=== PATIENT | female | born 1980 | race American Indian/Alaskan Native ===

== ENCOUNTER 2018-04-08 16:39 | Emergency (ER) | payer OTHER ==
[2018-04-08 16:55] VITALS: BMI 26.4
[2018-04-08 17:03] VITALS: BP 132/84; PULSE 88; TEMP 98; O2SAT 99
[2018-04-08 17:33] LABS: HCG,QUALITATIVE URINE NEGATIVE (NEGATIVE)
[2018-04-08 17:38] LABS: SQUAMOUS EPITHIAL 9 /hpf (0-5); URINE BACTERIA FEW (<OCC); URINE BILIRUBIN NEGATIVE (NEGATIVE); URINE BLOOD 2+ (NEGATIVE); URINE CLARITY Hazy (Clear); URINE COLOR Yellow (YELLOW); URINE GLUCOSE (UA) NORMAL (Normal); URINE LEUKOCYTE ESTERASE 2+ Leu/uL (Negative); URINE PROTEIN NEGATIVE (NEGATIVE)
[2018-04-08 17:50] LABS: BARBITURATES, UR NEGATIVE (NEGATIVE); BENZODIAZEPINES, UR POSITIVE (NEGATIVE); OPIATES, UR POSITIVE (NEGATIVE); PHENCYCLIDINE, UR POSITIVE (NEGATIVE)
[2018-04-08] MEDS ORDERED: cefTRIAXone (Rocephin) 250 mg Inj IM STA ×2 (18:08→18:25)
[2018-04-08] MEDS ORDERED: Emtricitabine-Tenofovir 200 mg-300 mg Tab PO STA (18:08)
[2018-04-08] MEDS ORDERED: Emtricitabine-Tenofovir 200 mg-300 mg Tab PO NR (18:15)
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
[2018-04-08] MEDS ORDERED: cefTRIAXone 500 MG in Sodium Chloride 0.9% 50 ML IM STA (18:19)
[2018-04-08 18:28] LABS: BASO # 0.1 K/uL (0.0-0.2); BASO % 1.8 % (0.0-2.0); EOS # 0.2 K/uL (0.0-0.7); HEMOGLOBIN 11.5 g/dL (11.0-16.0); LYMPH # 2.9 K/uL (1.0-4.3); MEAN CELL VOLUME 93.6 fL (81.0-99.0); MEAN CORPUSCULAR HEMOGLOBIN 31.7 pg (27.0-31.0); MEAN CORPUSCULAR HGB CONC 33.8 g/dL (33.0-37.0); MEAN PLATELET VOLUME 8.4 fL (7.2-11.7); MONO # 0.3 K/uL (0.0-0.8); MONO % 4.9 % (0.0-10.0); NEUT # 2.7 K/uL (1.8-7.0); NEUT % 43.3 % (50.0-75.0); NRBC % 0.1 % (0.0-2.0); RBC 3.64 Mil/uL (3.80-5.20); RED CELL DISTRIBUTION WIDTH 13.7 % (11.5-14.5); WHITE BLOOD COUNT 6.2 K/uL (4.8-10.8)
[2018-04-08 18:44] LABS: ALBUMIN 3.8 g/dL (3.5-5.0); ALT/SGPT 9 U/L (9-52); AST/SGOT 20 U/L (14-36); BLOOD UREA NITROGEN 9 mg/dL (7-17); CALCIUM 8.8 mg/dl (8.6-10.4); GFR AFRICAN-AMERICAN > 60; GFR NON-AFRICAN AMERICAN > 60
[2018-04-08 19:32] VITALS: RESP 20
== END 2018-04-08 19:31 | disposition home or self-care (01) ==
LOC: C.ER 16:39
DX: Z04.41 Encounter for examination and observation following alleged adult rape (principal); Z59.0 Homelessness
CPT/HCPCS: 80053; 80324; 80345; 80346; 80349; 80353; 80358; 80361; 81001; 83992; 84703; 85025; 86592; 86703; 86706; 87086; 96372; 99285; J0696; J1885

== ENCOUNTER 2018-11-24 16:59 | Inpatient (IN) | payer MEDICAID, OTHER ==
[2018-11-24 17:00] VITALS: BMI 26.4
[2018-11-24 18:24] LABS: HEMOGLOBIN 11.9 g/dL (11.0-16.0); MEAN CELL VOLUME 94.8 fL (81.0-99.0); MEAN CORPUSCULAR HEMOGLOBIN 30.8 pg (27.0-31.0); MEAN CORPUSCULAR HGB CONC 32.5 g/dL (33.0-37.0); MEAN PLATELET VOLUME 8.7 fL (7.2-11.7); RBC 3.88 Mil/uL (3.80-5.20); RED CELL DISTRIBUTION WIDTH 13.2 % (11.5-14.5); WHITE BLOOD COUNT 7.2 K/uL (4.8-10.8)
[2018-11-24 18:28] LABS: SQUAMOUS EPITHIAL 1 /hpf (0-5); URINE BACTERIA RARE (<OCC); URINE BILIRUBIN NEGATIVE (NEGATIVE); URINE BLOOD 3+ (NEGATIVE); URINE CLARITY Clear (Clear); URINE COLOR Yellow (YELLOW); URINE GLUCOSE (UA) NORMAL (Normal); URINE LEUKOCYTE ESTERASE NEG Leu/uL (Negative); URINE PROTEIN NEGATIVE (NEGATIVE); URINE UROBILINOGEN NORMAL mg/dL (0.2-1.0)
[2018-11-24 18:38] LABS: ALB/GLOB RATIO 1.2 (1.0-2.1); ALBUMIN 4.6 g/dL (3.5-5.0); ALT/SGPT 29 U/L (9-52); AST/SGOT 25 U/L (14-36); BLOOD UREA NITROGEN 14 mg/dL (7-17); CALCIUM 8.7 mg/dl (8.6-10.4); GFR NON-AFRICAN AMERICAN 55
[2018-11-24 18:41] LABS: BARBITURATES, UR NEGATIVE (NEGATIVE)
[2018-11-24 18:42] LABS: BENZODIAZEPINES, UR POSITIVE (NEGATIVE); OPIATES, UR POSITIVE (NEGATIVE); PHENCYCLIDINE, UR POSITIVE (NEGATIVE)
--- NOTE | 2018-11-24 19:11 | C.PDOC ---
History Of Present Illness 38 year old female presents to the emergency department requesting detox from opiates last taken yesterday. Patient complains of chest tightness, and states that she was "supposed to take medicine for her heart" for an unspecific reason, and that she hasn't taken it in a long time. Patient denies cough, fever, chills, chest pain, shortness of breath, and other physical and psychological complaints. Time Seen by Provider: 11/24/18 18:07 Chief Complaint (Nursing): Substance Abuse History Per: Patient History/Exam Limitations: no limitations Onset/Duration Of Symptoms: Days (1) Current Symptoms Are (Timing): Still Present Suicide/Self Injury Attempted (Context): None Modifying Factor(s): Other (opiates) Associated Symptoms: denies: Suicidal Thoughts, Suicidal Plan Past Medical History Reviewed: Historical Data, Nursing Documentation, Vital Signs Vital Signs: Last Vital Signs Temp 98.4 F 11/24/18 17:26 Pulse 97 H 11/24/18 17:26 Resp 18 11/24/18 17:26 BP 95/63 L 11/24/18 17:26 Pulse Ox 98 11/24/18 17:26 - Medical History PMH: Anemia, Anxiety, Gastritis, Migraine Denies: Diabetes, Hepatitis, HIV, HTN, Seizures, Sexually Transmitted Disease Surgical History: No Surg Hx Denies: Pacemaker Family History: States: No Known Family Hx - Social History Hx Tobacco Use: Yes Hx Alcohol Use: Yes Hx Substance Use: Yes - Immunization History Hx Tetanus Toxoid Vaccination: No Hx Influenza Vaccination: No Hx Pneumococcal Vaccination: No Review Of Systems Constitutional: Negative for: Fever, Chills Cardiovascular: Positive for: Other (chest tightness). Negative for: Chest Pain (chest tightness) Respiratory: Negative for: Shortness of Breath Gastrointestinal: Negative for: Nausea, Vomiting, Abdominal Pain, Diarrhea Physical Exam - Physical Exam Appears: Non-toxic, No Acute Distress Skin: Normal Color, Warm, Dry Head: Atraumatic, Normacephalic Eye(s): bilateral: Normal Inspection, PERRL, EOMI Nose: Normal Oral Mucosa: Moist Throat: Normal, No Erythema, No Exudate Neck: Normal, Supple Chest: Symmetrical, No Tenderness Cardiovascular: Rhythm Regular, No Murmur Respiratory: Normal Breath Sounds, No Rales, No Rhonchi, No Wheezing Gastrointestinal/Abdominal: Soft, No Tenderness, No Guarding, No Rebound Extremity: Normal ROM Neurological/Psych: Oriented x3, Normal Speech, Normal Cognition ED Course And Treatment - Laboratory Results Result Diagrams: 11/24/18 18:22 11/24/18 18:22 ECG Rhythm: Sinus Rhythm ECG Interpretation: Normal Rate From EC O2 Sat by Pulse Oximetry: 98 (RA) Pulse Ox Interpretation: Normal Medical Decision Making Medical Decision Making: Plan: EKG Chemistry CBC CXR Urinalysis Will admit to detox. pt has neg cxr and normal ekg. no signs of respiratory distress. pt is medically cleared for detox admission. recommend contacting pt's pmd to verify any other medications she should be on. 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 - Scribe Statement The provider has reviewed the documentation as recorded by the Scribe (Brenden Wang) All medical record entries made by the Scribe were at my direction and person ally dictated by me. I have reviewed the chart and agree that the record accurately reflects my personal performance of the history, physical exam, medical decision making, and the department course for this patient. I have also personally directed, reviewed, and agree with the discharge instructions and disposition.
--- NOTE | 2018-11-24 20:51 | RAD ---
HISTORY: chest tightness COMPARISON: Chest x-ray performed 12/06/15 TECHNIQUE: Chest PA and lateral FINDINGS: The patient is slightly rotated. LUNGS: Right hilar prominence. No focal consolidation. Please note that chest x-ray has limited sensitivity for the detection of pulmonary masses. PLEURA: No significant pleural effusion identified. No definite pneumothorax . CARDIOVASCULAR: Heart size appears within normal limits. No atherosclerotic calcification present. OSSEOUS STRUCTURES: No acute osseous abnormality identified. VISUALIZED UPPER ABDOMEN: Unremarkable. OTHER FINDINGS: None. IMPRESSION: Right hilar prominence.
--- NOTE | 2018-11-24 22:40 | PCM.BM ---
<Cosme Tobar - Last Filed: 11/24/18 22:37> Treatment Plan Problems - Problems identified on initial assessmt denial Date Initiated: 11/24/18 Time Initiated: 22:38 Assessment reference: NA Status: Active defensive coping Date Initiated: 11/24/18 Time Initiated: 22:38 Assessment reference: NA Status: Active hopelessness Date Initiated: 11/24/18 Time Initiated: 22:39 Assessment reference: NA Status: Active Treatment assets and liabiliti Patient Assests: cooperative, ADL independent, cognitively intact Patient Liabilities: substance abuse, medical problems - Milieu Protocol Maintain good personal hygiene: daily Encourage regular showers, daily Remind patient to perform daily oral care, daily Assist patient to perform ADL's Maintain personal safety: every shift Educate patient to report safety concerns to staff, every shift Monitor environment for contraband/sharps Medication safety: Monitor for expected outcome, potential side effects: every shift, Assess barriers to learning: every shift, Assess readiness for medication education: every shift <Kulwant Gillespie - Last Filed: 11/25/18 18:54> - Diagnosis (1) Opioid use disorder, severe, dependence Status: Acute Interventions: 11/25/18 18:54 * Assess 7x/week regarding severity of withdrawal * Educate regarding risks, benefits, side effects and alternatives of me dications * Use Motivational Interviewing for abstinence * Use CBT for relapse prevention * Medication management for withdrawal symptoms * Encourage medication assisted treatment (2) Phencyclidine (PCP) use disorder, moderate Status: Acute Interventions: 11/25/18 18:54 * Assess 7x/week regarding severity of withdrawal * Educate regarding risks, benefits, side effects and alternatives of medications * Use Motivational Interviewing for abstinence * Use CBT for relapse prevention * Medication management for withdrawal symptoms * Encourage medication assisted treatment (3) Cocaine use disorder, severe, dependence Status: Acute Interventions: 11/25/18 18:54 * Assess 7x/week regarding severity of withdrawal * Educate regarding risks, benefits, side effects and alternatives of medications * Use Motivational Interviewing for abstinence * Use CBT for relapse prevention * Medication management for withdrawal symptoms * Encourage medication assisted treatment (4) Sedative, hypnotic or anxiolytic use disorder, severe, dependence Status: Acute Interventions: 11/25/18 18:55 * Assess 7x/week regarding severity of withdrawal * Educate regarding risks, benefits, side effects and alternatives of medic ations * Use Motivational Interviewing for abstinence * Use CBT for relapse prevention * Medication management for withdrawal symptoms * Encourage medication assisted treatment <Luciana King - Last Filed: 11/28/18 13:12> Family Contact Family involvement: No known Family/SO - Goals for Treatment Patient goals for treatment: Complete detox and discuss aftercare options with counseling staff. Discharge/Continuing Care - Education Needs Education Needs: Patient Medication, Patient Diagnosis/Disease Process, Patient Coping Skills, Patient Anger Management skills, Patient Placement options, Patient Community resources - Discharge Discharge Criteria: No longer exhibiting s/s of withdrawal, Reduction of target symptoms Discharge to:: Other - Additional Comments 11/28/18 13:11 As of this writing, pt. is unsure about aftercare plan but will continue to explore options with counseling staff. - Treatment Team Participation Discussed with Family/SO: No Was Patient/Family/SO present at Treatment Team Meeting: Yes
[2018-11-24] MEDS ORDERED: Aluminum Hydroxide/Magnesium Hydroxide Susp (30 mL) PO PRN (23:14)
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
--- NOTE | 2018-11-27 08:55 | PCM.PYCHPN ---
Psychiatric Progress Note - Psychiatric Progress Note Patient seen today, length of contact: 16 min Problems Identified/Issues Discussed: The pt is seen, chart reviewed, case discussed with staff. The pt is compliant with medications and reports no side-effects. She started to get into bad withdrawals at night and this morning she threw up prn meds and later methadone given with good results Support given, psycho-education provided. After care discussed briefly Medication Change: Yes (detox changes daily) Medical Record Reviewed: Yes Mental Status Examination - Cognitive Function Orientation: Person, Place, Situation, Time Memory: Impaired Attention: Poor Concentration: Poor Association: WNL Fund of Knowledge: WNL - Mood Mood: Anxious - Affect Affect: Constricted, Other (Appropriate) - Speech Speech: Appropriate - Formal Thought Process Formal Thought Process: No Impairment - Suicidal Ideation Suicidal Ideation: No - Homicidal Ideation Homicidal Ideation: No Goal/Treatment Plan - Goal/Treatment Plan Need for Continued Stay: Discharge may exacerbated symptoms, Severe functional impairment Progress Toward Problem(s) and Goals/Treatment Plan: Continue medications Support and psychoeducation daily Attend groups and activities daily After care planning by counselors Estimated Date of D/C: 11/29/18
--- NOTE | 2018-11-27 12:21 | CARD ---
APPROVED REPORT Date of service: 11/24/2018 EKG Measurement Heart [id number] <Conclusion> Normal sinus rhythm Normal ECG
--- NOTE | 2018-11-28 14:58 | PCM.PYCHPN ---
Psychiatric Progress Note - Psychiatric Progress Note Patient seen today, length of contact: 15 min Medication Change: Yes (detox changes daily) Medical Record Reviewed: Yes Mental Status Examination - Cognitive Function Orientation: Person, Place, Situation, Time Memory: Impaired Attention: Poor Concentration: Poor Association: WNL Fund of Knowledge: WNL - Mood Mood: Anxious - Affect Affect: Constricted, Other (Appropriate) - Speech Speech: Appropriate - Formal Thought Process Formal Thought Process: No Impairment - Suicidal Ideation Suicidal Ideation: No - Homicidal Ideation Homicidal Ideation: No Goal/Treatment Plan - Goal/Treatment Plan Need for Continued Stay: Discharge may exacerbated symptoms, Severe functional impairment Progress Toward Problem(s) and Goals/Treatment Plan: Continue medications Support and psychoeducation daily Attend groups and activities daily After care planning by counselors Estimated Date of D/C: 11/29/18
[2018-11-29 06:02] VITALS: RESP 18
--- NOTE | 2018-11-29 08:50 | PCM.PYCHDC ---
Mental Status Examination - Mental Status Examination Orientation: Person Discharge Summary - Discharge Note Consultations:: List each consultation separately and include: 1. Reason for request. 2. Findings. 3. Follow-up Summary of Hospital Course include:: 1. Description of specific treatment plan utilized for patients during their course of treatmen. 2. Summarize the time- course for resolution of acute symptoms and/or regressed behaviors. 3. Describe issues identified and worked on during hospitalization. 4. Describe medication utilized. 5. Describe medical problems identified and treated. 6. Reassessment of suicide risk Summary of Hospital Course: She will go to [facility] and also consider [facility] when her insurance kicks in. - Final Diagnosis (DSM 5) Condition upon Discharge: GOOD Disposition: HOME/ ROUTINE Follow-up Treatment Plan: Continue medications Support and psychoeducation daily Attend groups and activities daily After care planning by counselors Prescriptions/Medication Reconciliation: Gabapentin [Neurontin] 300 mg PO TID #90 cap traZODone [Desyrel] 100 mg PO HS #30 tab
[2018-11-29 11:16] VITALS: BP 98/64; PULSE 80; TEMP 98; O2SAT 99
== END 2018-11-29 10:30 | disposition home or self-care (01) | DRG 773 ==
LOC: C.ER 16:59 → C.7D 22:13
PROC: HZ2ZZZZ Detoxification Services for Substance Abuse Treatment (ICD-10-PCS; principal; 2018-11-24)
DX: F11.23 Opioid dependence with withdrawal (principal); F13.20 Sedative, hypnotic or anxiolytic dependence, uncomplicated; F14.20 Cocaine dependence, uncomplicated; F16.20 Hallucinogen dependence, uncomplicated; Z87.891 Personal history of nicotine dependence; Z91.410 Personal history of adult physical and sexual abuse